=== PATIENT | female | born 1955 | race Caucasian/White ===

== ENCOUNTER 2018-09-13 20:08 | Emergency (ER) | payer SELFPAY ==
[~2018-09-13] VITALS: Ht 157.5 cm; Wt 64.8 kg
[2018-09-13 20:15] VITALS: Ht 157.5 cm; Wt 64.8 kg
[2018-09-13] MEDS ORDERED: ACETAMINOPHEN 325 MG TAB PO ONE (22:30)
[2018-09-13] MEDS ORDERED: METHOCARBAMOL 500 MG TAB PO ONE (22:30)
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
[2018-09-13] MEDS ORDERED: METH500T PO (22:32)
[2018-09-13] MEDS ORDERED: ACET500C5 PO (22:32)
[2018-09-14 02:19] VITALS: BP 113/74; PULSE 16; RESP 16
== END 2018-09-14 02:13 | disposition home or self-care (01) ==
LOC: FTE 20:08
DX: R51 Headache (principal); M54.5 Low back pain
CPT/HCPCS: 99283